=== PATIENT | female | born 1995 | race Hispanic/Latino ===

== ENCOUNTER → 2022-09-20 | Outpatient (CLI) | payer MEDICAID ==
[~2022-09-20] MED LIST: AMOX1TAB16 PO; DOXY1TAB3 PO; LACT20PA6 PO
[2022-09-20 12:33] LABS: BASOPHILS % (AUTO) 0.3 % (0.0-5.0); HEMATOCRIT 31.6 % (36-48); LYMPHOCYTES % (AUTO) 19.2 % (21.0-51.0); MEAN CORPUSCULAR HEMOGLOBIN 27.5 pg (27.0-33.0); MEAN CORPUSCULAR HGB CONC 31.6 g/dL (32.0-36.0); MEAN CORPUSCULAR VOLUME 87.1 fL (79-99); MONOCYTES % (AUTO) 8.8 % (3.0-13.0); NEUTROPHILS % (AUTO) 69.8 % (40.0-77.0); PLATELET COUNT (AUTO) 174 K/uL (130-400); RED BLOOD CELL COUNT(AUTO) 3.63 MIL/uL (4.00-5.50); RED CELL DISTRIBUTION WIDTH 19.8 % (11.0-15.5); WHITE BLOOD COUNT (AUTO) 6.8 K/uL (4.8-10.8)
[2022-09-20 12:46] LABS: ALBUMIN 2.7 g/dL (3.5-5.0); CREATININE 0.5 mg/dL (0.5-1.5); POTASSIUM 3.7 mmol/L (3.5-5.1); TOTAL PROTEIN, SERUM 6.1 g/dL (6.0-8.3)
[2022-09-20 13:25] LABS: % IRON SATURATION 23.3 % (22-44)
== END | disposition home or self-care (01) ==
LOC: LAB 10:12
PROVIDERS: ATTEND Student in an Organized Health Care Education/Training Program
DX: R51.9 Headache, unspecified (principal); R55 Syncope and collapse; D64.9 Anemia, unspecified; I95.9 Hypotension, unspecified
CPT/HCPCS: 36415; 80053; 83540; 83550; 85025

== ENCOUNTER → 2022-10-12 | Outpatient (CLI) | payer MEDICAID | END | disposition home or self-care (01) | LOC: SHCH 14:09 | PROVIDERS: ATTEND Student in an Organized Health Care Education/Training Program | DX: G45.8 Other transient cerebral ischemic attacks and related syndromes (principal) | CPT/HCPCS: 93880 ==